=== PATIENT | male | born 1985 | race Two or more races ===

== ENCOUNTER 2023-03-06 18:56 | Emergency (ER) | payer OTHER ==
[~2023-03-06] VITALS: Ht 175.3 cm; Wt 86.2 kg
--- NOTE | 2023-03-06 19:52 | NUR ---
Patient's S/O in room at bed side with patient.
[2023-03-06 20:02] LABS: HEMATOCRIT 42.6 % (36.7-47.1); MEAN CORPUSCULAR HEMOGLOBIN 28.1 uug (23.8-33.4); MEAN CORPUSCULAR VOLUME 84.3 fL (73.0-96.2); PLATELET COUNT (AUTO) 229 K/uL (152-348)
[2023-03-06 20:14] LABS: CARBON DIOXIDE 29 mmol/L (21-32); CHLORIDE 102 mmol/L (98-107); CREATININE 0.7 mg/dL (0.6-1.3); GLUCOSE 101 mg/dL (74-106); POTASSIUM 3.8 mmol/L (3.5-5.1); UREA NITROGEN, BLOOD 14 mg/dL (7-18)
[2023-03-06 21:17] VITALS: BP 119/75
== END 2023-03-06 21:18 | disposition home or self-care (01) ==
LOC: ER 19:00
DX: R07.89 Other chest pain (principal); F17.210 Nicotine dependence, cigarettes, uncomplicated
CPT/HCPCS: 36415; 71045; 83735; 84484; 85025; 93005; A4663